=== PATIENT | female | born 1970 | race Asian ===

== ENCOUNTER 2024-07-24 09:36 | Day surgery (SDC) | payer BC ==
[2024-07-16 14:48] VITALS: BMI 30.9
[2024-07-24 09:53] VITALS: TEMP 97.8
[2024-07-24 11:44] VITALS: RESP 18
[2024-07-24 11:46] VITALS: BP 112/62; PULSE 82
== END 2024-07-24 11:50 | disposition home or self-care (01) ==
LOC: FASU-ENDO 09:36
PROVIDERS: ATTEND Internal Medicine Gastroenterology
PROC: 0DJD8ZZ Inspection of Lower Intestinal Tract, Via Natural or Artificial Opening Endoscopic (ICD-10-PCS; principal; 2024-07-24 11:01)
DX: Z12.11 Encounter for screening for malignant neoplasm of colon (principal); Z86.0109 Personal history of other colon polyps; K64.1 Second degree hemorrhoids